=== PATIENT | female | born 1970 | race African-American/Black ===

== ENCOUNTER 2020-08-06 20:49 | Emergency (ER) | payer SELFPAY ==
[~2020-08-06] VITALS: Ht 170.2 cm; Wt 75.0 kg
[2020-08-06 21:54] VITALS: BP 157/90
[2020-08-06 22:03] LABS: BASOPHILS % 0.9 % (0.0-2.0); EOSINOPHILS % 1.8 % (0.0-5.0); HEMATOCRIT. 39.6 % (36.0-48.0); HEMOGLOBIN. 13.1 g/dL (12.0-16.0); MEAN CORPUSCULAR VOLUME 84.6 fL (81.0-99.0); MONOCYTES % 9.4 % (2.0-8.0); NEUTROPHILS % 65.9 % (40.0-76.0); PLATELET 269 x1000/uL (130-400); RED BLOOD CELL COUNT 4.67 mill/uL (4.2-5.4); RED CELL DISTRIBUTION WIDTH 16.6 % (11.6-14.6)
[2020-08-06 22:09] LABS: CHLORIDE 108 mEq/L (98-107)
== END 2020-08-06 23:00 | disposition home or self-care (01) ==
LOC: ER 20:49
DX: I10 Essential (primary) hypertension (principal)
CPT/HCPCS: 36415; 80048; 81025; 85025; 93005; 99284

== ENCOUNTER 2020-08-11 20:25 | Emergency (ER) | payer SELFPAY ==
[~2020-08-11] VITALS: Ht 170.2 cm; Wt 71.0 kg
[2020-08-11] MEDS ORDERED: ACETAMINOPHEN 325MG TABLET PO STA (23:05)
[2020-08-11 23:51] LABS: CHLORIDE 107 mEq/L (98-107)
[2020-08-11 23:53] LABS: BASOPHILS % 1.1 % (0.0-2.0); EOSINOPHILS % 1.6 % (0.0-5.0); HEMATOCRIT. 38.6 % (36.0-48.0); HEMOGLOBIN. 12.7 g/dL (12.0-16.0); LYMPHOCYTES % 22.4 % (20.0-50.0); MEAN CORPUSCULAR HEMOGLOBIN 27.7 pg (28.0-32.0); MEAN CORPUSCULAR VOLUME 84.2 fL (81.0-99.0); MEAN PLATELET VOLUME 9.2 fl (7.4-10.4); MONOCYTES % 13.1 % (2.0-8.0); NEUTROPHILS % 61.8 % (40.0-76.0); PLATELET 301 x1000/uL (130-400); RED BLOOD CELL COUNT 4.58 mill/uL (4.2-5.4); RED CELL DISTRIBUTION WIDTH 15.8 % (11.6-14.6)
[2020-08-12 01:25] VITALS: BP 137/87
== END 2020-08-12 01:28 | disposition home or self-care (01) ==
LOC: ER 20:25
DX: I10 Essential (primary) hypertension (principal)
CPT/HCPCS: 36415; 80053; 83880; 84484; 85025; 93005; 99284